=== PATIENT | female | born 1995 | race Caucasian/White ===

== ENCOUNTER 2022-04-26 20:52 | Inpatient (IN) | payer OTHER ==
[~2022-04-26] VITALS: Ht 157.5 cm; Wt 68.0 kg
[~2022-04-26 20:52] MED LIST: OXYTOCIN 10 USP UNITS/ML IV ONE
[2022-04-26] MEDS ORDERED: OXYTOCIN-LR 20 UNITS/1000 ML 1,000 ML IV SCH (21:30)
[2022-04-26] MEDS ORDERED: LACTATED RINGERS 1000ML 1,000 ML IV PRN (21:30)
[2022-04-26] MEDS ORDERED: ROPIVACAINE 0.2% 100ML VIAL 100 ML EP SCH (22:00)
[2022-04-26] MEDS ORDERED: EPHEDRINE SULFATE 50 MG/ML AMPULE IVP PRN (22:00)
[2022-04-26] MEDS ORDERED: LACTATED RINGERS 500 ML 500 ML IV PRN (22:00)
[2022-04-26] MEDS ORDERED: NALOXONE HCL 0.4 MG/1 ML ML IV PRN (22:00)
[2022-04-26 22:16] LABS: HEMATOCRIT 31.9 % (36-48); MEAN CORPUSCULAR HGB CONC 31.7 g/dL (32.0-36.0); MEAN CORPUSCULAR VOLUME 72.5 fL (79-99); NUCLEATED RED BLOOD CELLS 0.2 % (0.0-0.19); PLATELET COUNT (AUTO) 389 K/uL (130-400); WHITE BLOOD COUNT (AUTO) 13.6 K/uL (4.8-10.8)
[2022-04-26 22:41] LABS: APPEARANCE,URINE CLEAR (CLEAR); BILIRUBIN,URINE NEGATIVE (NEGATIVE); COLOR,URINE YELLOW (YELLOW); GLUCOSE, URINE (UA) NEGATIVE (NEGATIVE); KETONES,URINE NEGATIVE (NEGATIVE); LEUKOCYTE ESTERASE ,URINE TRACE (NEGATIVE); NITRATE,URINE NEGATIVE (NEGATIVE); OCCULT BLOOD,URINE LARGE (NEGATIVE); PH,URINE 6.5 (5.0-8.0); PROTEIN,URINE 30 mg/dL (NEGATIVE)
[2022-04-26 22:49] LABS: AMPHET/METH SCREEN,URINE NEGATIVE (NEGATIVE); BARBITURATE SCREEN, URINE NEGATIVE (NEGATIVE); BENZODIAZEPINES SCREEN,URINE NEGATIVE (NEGATIVE); CANNABINOID SCREEN,URINE NEGATIVE (NEGATIVE); COCAINE SCREEN,URINE NEGATIVE (NEGATIVE); PHENCYCLIDINE SCREEN,URINE NEGATIVE (NEGATIVE)
[2022-04-26 23:00] LABS: BACTERIA,URINE Few /HPF (None Seen); MUCUS,URINE Many LPF (None Seen); SQUAMOUS EPITHELIAL CELL,UR Moderate /HPF (0-2)
[2022-04-26 23:11] VITALS: BP 128/78
[2022-04-26] MEDS: BUTORPHANOL TARTRATE 2 MG/ML IVP PRN (23:31)
[2022-04-27] MEDS ORDERED: OXYTOCIN-LR 20 UNITS/1000 ML 1,000 ML IV SCH (04:00)
[2022-04-27] MEDS: LACTATED RINGERS 1000ML 1,000 ML IV SCH ×3 (04:11→15:42)
[2022-04-27] MEDS: BUTORPHANOL TARTRATE 2 MG/ML IVP PRN (06:51)
[2022-04-27 09:13] LABS: RAPID PLASMA REAGIN NONREACTIVE (NONREACTIVE)
[2022-04-27] MEDS ORDERED: METHYLERGONOVINE MALEATE 0.2 MG/1 ML ML IM PRN (14:30)
[2022-04-27] MEDS ORDERED: CARBOPROST TROMETHAMINE 250 MCG/ML AMP IM PRN (14:30)
[2022-04-27] MEDS ORDERED: TRANEXAMIC ACID 1000MG/10ML IV PRN (14:30)
[2022-04-27] MEDS ORDERED: CLINDAMYCIN IVPB 900MG/50ML 50 ML IV ONE (14:59)
[2022-04-27] MEDS ORDERED: CEFAZOLIN SODIUM 1 GM VIAL IVP PRN (15:00)
[2022-04-27] MEDS ORDERED: MISOPROSTOL 200 MCG TABLET PR PRN (15:00)
[2022-04-27] MEDS ORDERED: CLINDAMYCIN IVPB 900MG/50ML 50 ML IV SCH (15:00)
[2022-04-27] MEDS ORDERED: ACETAMINOPHEN 500 MG TABLET ONE (15:02)
[2022-04-27] MEDS ORDERED: ACETAMINOPHEN 500 MG TABLET PO ONE (15:30)
[2022-04-27] MEDS ORDERED: GENTAMICIN SULFATE 240 MG in 0.9%NACL 100ML 100 ML IV SCH (15:30)
[2022-04-27] MEDS ORDERED: CEFAZOLIN SODIUM 2 GM VIAL IV ONE (17:10)
[2022-04-27] MEDS ORDERED: ONDANSETRON 4MG INJ ONE (17:14)
[2022-04-27] MEDS ORDERED: FENTANYL CITRATE PF 50 MCG/1 ML 2ML VIAL ONE ×2 (17:22→17:23)
[2022-04-27] MEDS ORDERED: MIDAZOLAM HCL 1 MG/ML 2ML VIAL ONE (17:23)
[2022-04-27] MEDS ORDERED: CALDOLOR 800MG+NS 250ML 250 ML IV ONE (17:24)
[2022-04-27] MEDS ORDERED: MEPERIDINE-PF 50 MG/ML SYG ONE (17:38)
[2022-04-27] MEDS ORDERED: ACETAMINOPHEN 500 MG TABLET PO PRN (18:30)
[2022-04-27] MEDS ORDERED: PROMETHAZINE HCL 25 MG/ML 1ML AMPULE IM PRN (18:30)
[2022-04-27] MEDS ORDERED: DIPHENHYDRAMINE HCL 25 MG CAPSULE PO PRN (18:30)
[2022-04-27] MEDS ORDERED: LANOLIN 30GM OINTMENT TP PRN (18:30)
[2022-04-27] MEDS ORDERED: OXYTOCIN-LR 20 UNITS/1000 ML 1,000 ML IV PRN (18:30)
[2022-04-27] MEDS ORDERED: HYDROCODONE/ACETAMINOPHEN 5/325 MG TAB PO PRN (18:30)
[2022-04-27] MEDS ORDERED: BISACODYL 10 MG SUPP.RECT RC PRN (18:30)
[2022-04-27] MEDS ORDERED: DEXTROSE 5 %-0.45 % NACL 1,000 ML IV PRN (18:30)
[2022-04-27] MEDS ORDERED: GENTAMICIN PROTOCOL PER PHARMACY IV SCH (18:30)
[2022-04-27] MEDS ORDERED: MEPERIDINE-PF 75 MG/ML SYG IM PRN (18:30)
[2022-04-27] MEDS ORDERED: EPHEDRINE SULFATE 50 MG/ML AMPULE IVP PRN (19:30)
[2022-04-27] MEDS ORDERED: NALOXONE HCL 0.4 MG/1 ML ML IVP PRN ×3 (19:30)
[2022-04-27] MEDS ORDERED: DiphenhydrAMINE HCL 50 MG/ML VIAL IVP PRN (19:30)
[2022-04-27] MEDS ORDERED: ONDANSETRON 4MG INJ IVP PRN (19:30)
[2022-04-27 21:10] VITALS: BP 137/95
[2022-04-27 23:03] VITALS: BP 139/96
[2022-04-27] MEDS: CLINDAMYCIN IVPB 900MG/50ML 50 ML IV SCH (23:07)
[2022-04-27] MEDS: GENTAMICIN 80 MG/NS 100 ML PB 100 ML IV SCH (23:51)
[2022-04-28] MEDS: CALDOLOR 800MG+NS 250ML 250 ML IV SCH ×2 (01:39→09:47)
[2022-04-28 04:07] VITALS: BP 119/81
[2022-04-28] MEDS: CLINDAMYCIN IVPB 900MG/50ML 50 ML IV SCH ×2 (06:27→14:21)
[2022-04-28] MEDS: ACETAMINOPHEN WITH CODEINE 1 TAB TAB PO PRN ×2 (06:28→12:00)
[2022-04-28] MEDS: DIPH,PERTUSS(ACELL),TET VAC/PF 0.5 ML VIAL IM SCH ×3 (06:44→23:05)
[2022-04-28 07:00] VITALS: BP 126/88
[2022-04-28] MEDS: GENTAMICIN 80 MG/NS 100 ML PB 100 ML IV SCH ×2 (07:54→16:10)
[2022-04-28] MEDS: LIDOCAINE 5% TOPICAL PATCH TP SCH (08:02)
[2022-04-28] MEDS: SIMETHICONE 80 MG TAB.CHEW PO PRN ×2 (08:06→20:50)
[2022-04-28] MEDS: DOCUSATE SODIUM 100 MG CAP PO SCH ×3 (08:06→21:00)
[2022-04-28] MEDS: IBUPROFEN 800 MG TAB PO SCH ×4 (10:30→23:44)
[2022-04-28 12:03] VITALS: BP 130/87
[2022-04-28 15:45] VITALS: BP 112/75
[2022-04-28 19:50] VITALS: BP 108/76
[2022-04-28] MEDS: LACTATED RINGERS 1000ML 1,000 ML IV SCH ×2 (21:00→23:05)
[2022-04-28] MEDS: BUTORPHANOL TARTRATE 2 MG/ML IVP PRN (22:59)
[2022-04-28] MEDS: MEASLES/MUMPS/RUBELLA VACCINE, LIVE 0.5 ML/VIAL SQ SCH (23:00)
[2022-04-28 23:38] VITALS: BP 127/85
[2022-04-29] VITALS (7 sets, daily range): BP systolic 107–138; BP diastolic 67–90
[2022-04-29] MEDS: ACETAMINOPHEN WITH CODEINE 1 TAB TAB PO PRN (00:48)
[2022-04-29] MEDS: IBUPROFEN 800 MG TAB PO SCH ×3 (01:03→16:26)
[2022-04-29] MEDS: SIMETHICONE 80 MG TAB.CHEW PO PRN ×4 (08:27→20:55)
[2022-04-29] MEDS: DOCUSATE SODIUM 100 MG CAP PO SCH ×2 (08:27→20:55)
[2022-04-29] MEDS: LIDOCAINE 5% TOPICAL PATCH TP SCH (08:28)
[2022-04-29] MEDS: LACTATED RINGERS 1000ML 1,000 ML IV SCH ×3 (13:00→20:05)
[2022-04-29] MEDS: DIPH,PERTUSS(ACELL),TET VAC/PF 0.5 ML VIAL IM SCH (20:05)
[2022-04-29] MEDS: MEASLES/MUMPS/RUBELLA VACCINE, LIVE 0.5 ML/VIAL SQ SCH (20:06)
[2022-04-30] MEDS: IBUPROFEN 800 MG TAB PO SCH ×2 (00:20→08:08)
[2022-04-30 03:01] VITALS: BP 125/76
[2022-04-30 07:35] VITALS: BP 128/80
[2022-04-30] MEDS: DOCUSATE SODIUM 100 MG CAP PO SCH (08:07)
[2022-04-30] MEDS: SIMETHICONE 80 MG TAB.CHEW PO PRN (08:07)
[2022-04-30] MEDS: LIDOCAINE 5% TOPICAL PATCH TP SCH (08:08)
[2022-04-30] MEDS ORDERED: DOCU-116 PO (09:56)
[2022-04-30] MEDS ORDERED: IBUP-2077 PO (09:57)
== END 2022-04-30 11:05 | disposition home or self-care (01) | DRG 786 ==
LOC: EDH 20:52 → OBSVTOIN 20:53 → LDH 20:53 → WSH 04-27 21:05
PROVIDERS: ADMIT Obstetrics & Gynecology; ATTEND Obstetrics & Gynecology
PROC: 3E0234Z Introduction of Serum, Toxoid and Vaccine into Muscle, Percutaneous Approach (ICD-10-PCS; 2022-04-27)
PROC: 10D00Z1 Extraction of Products of Conception, Low, Open Approach (ICD-10-PCS; principal; 2022-04-27 17:00)
DX: O62.2 Other uterine inertia (principal); O41.1230 Chorioamnionitis, third trimester, not applicable or unspecified; Z3A.40 40 weeks gestation of pregnancy; O69.81X0 Labor and delivery complicated by cord around neck, without compression, not applicable or unspecified; Z37.0 Single live birth; Z23 Encounter for immunization
CPT/HCPCS: 36415; 59510; 80305; 81001; 85027; 86592; 86701; 86850; 86900; 86901; 87088; 87340; 87390; 90715; A4344; G0378; J0595; J0690; J1580; J1741; J2175; J2250; J2405; J2550; J2590; J2795; J3010; J3490; J7120

== ENCOUNTER 2023-11-25 10:27 | Observation (INO) | payer MEDICAID ==
[~2023-11-25] VITALS: Ht 157.5 cm; Wt 51.7 kg
[~2023-11-25 10:27] MED LIST changes: +DOCU-116 PO; +IBUP-2077 PO; -OXYTOCIN 10 USP UNITS/ML IV ONE
[2023-11-25] MEDS: HYDROCODONE/ACETAMINOPHEN 10/325 MG TAB PO ONE (11:27)
[2023-11-25] MEDS ORDERED: ONDANSETRON 4MG INJ IVP PRN (14:00)
[2023-11-25 14:02] LABS: BASOPHILS # (AUTO) 0.01 K/uL (0.00-0.20); BASOPHILS % (AUTO) 0.1 % (0.0-5.0); EOSINOPHILS # (AUTO) 0.01 K/uL (0.00-0.70); EOSINOPHILS % (AUTO) 0.1 % (0.0-8.0); HEMATOCRIT 41.8 % (36-48); IMMATURE GRANULOCYTE ABSOLUTE 0.05 K/uL (0-1); LYMPHOCYTES # (AUTO) 2.4 K/uL (1.0-4.8); LYMPHOCYTES % (AUTO) 19.5 % (21.0-51.0); MEAN CORPUSCULAR VOLUME 81.6 fL (79-99); MONOCYTES # (AUTO) 0.4 K/uL (0.1-1.0); MONOCYTES % (AUTO) 2.9 % (3.0-13.0); NEUTROPHILS # (AUTO) 9.3 K/uL (1.8-7.7); PLATELET COUNT (AUTO) 329 K/uL (130-400); RED BLOOD CELL COUNT(AUTO) 5.12 MIL/uL (4.00-5.50); RED CELL DISTRIBUTION WIDTH 13.5 % (11.0-15.5); WHITE BLOOD COUNT (AUTO) 12.1 K/uL (4.8-10.8)
[2023-11-25] MEDS: DIPH,PERTUSS(ACELL),TET VAC/PF 0.5 ML VIAL IM ONE (14:03)
[2023-11-25 14:12] LABS: INR <= 0.93 (0.85-1.15); PROTHROMBIN TIME 9.9 SEC (9.6-11.6)
[2023-11-25 14:14] LABS: PARTIAL THROMBOPLASTIN TIME 27.1 SEC (26.3-35.5)
[2023-11-25 14:15] LABS: % IRON SATURATION 13.7 % (22-44)
[2023-11-25 14:31] LABS: ALBUMIN 3.9 g/dL (3.5-5.0); BILIRUBIN,TOTAL 0.5 mg/dL (0.2-1.0); CREATININE 0.6 mg/dL (0.5-1.5); MAGNESIUM 1.9 mg/dL (1.80-2.40); POTASSIUM 3.6 mmol/L (3.5-5.1); TOTAL PROTEIN, SERUM 7.7 g/dL (6.0-8.3)
[2023-11-25] MEDS: ONDANSETRON 4MG INJ IVP PRN (15:19)
[2023-11-25] MEDS: MORPHINE 2 MG SYG IVP PRN (15:19)
[2023-11-25] MEDS: 0.9%NACL 1000ML 1,000 ML IV SCH (15:37)
[2023-11-25] MEDS: CEFAZOLIN SODIUM 1 GM VIAL IVPB SCH (15:38)
[2023-11-25 16:00] VITALS: BP 134/76; PULSE 59; RESP 16
[2023-11-25] MEDS: KETOROLAC 15MG/ML VIAL (15MG/ML) IV PRN (16:51)
[2023-11-25] MEDS: FAMOTIDINE 20MG VIAL IV SCH (18:54)
[2023-11-25 19:05] VITALS: O2SAT 80; O2SAT 99
[2023-11-25 20:00] VITALS: BP 114/66; PULSE 60; RESP 18
[2023-11-25] MEDS: HYDROCODONE/ACETAMINOPHEN 5/325 MG TAB PO ONE (22:16)
[2023-11-25 23:00] VITALS: BP 114/66; PULSE 60; RESP 18
[2023-11-25 23:53] VITALS: BP 124/70; PULSE 80; RESP 18
[2023-11-26] VITALS (26 sets, daily range): BP systolic 104–139; BP diastolic 47–86; PULSE 61–98; RESP 12–19; O2SAT 95
[2023-11-26] MEDS ORDERED: LIDOCAINE PF 100MG/5ML (2%) SYRINGE 5ML ONE (08:29)
[2023-11-26] MEDS ORDERED: FENTANYL CITRATE PF 50 MCG/1 ML 2ML VIAL ONE (08:30)
[2023-11-26] MEDS ORDERED: PROPOFOL 10 MG/ML 20ML VIAL IV ONE (08:30)
[2023-11-26] MEDS ORDERED: MIDAZOLAM HCL 1 MG/ML 2ML VIAL ONE (08:30)
[2023-11-26] MEDS ORDERED: DEXAMETHASONE SOD PHOSPHATE 10MG/ML 1ML VIAL ONE (08:31)
[2023-11-26] MEDS ORDERED: ONDANSETRON 4MG INJ ONE (08:31)
[2023-11-26] MEDS: CEFAZOLIN SODIUM 2 GM VIAL ONE (08:52)
[2023-11-26] MEDS: BUPIVACAINE/PF 0.25% 30ML VIAL IJ ONE (09:05)
[2023-11-26] MEDS ORDERED: PHENYLEPHRINE HCL 10 MG/ML 1ML VIAL IV ONE (09:25)
[2023-11-26] MEDS: MEPERIDINE-PF 25 MG/ML SYG ONE ×2 (10:13→10:24)
[2023-11-26] MEDS: KETOROLAC 15MG/ML VIAL (15MG/ML) ONE (14:29)
[2023-11-27 04:00] VITALS: BP 115/69; PULSE 75; RESP 19
[2023-11-27 05:02] LABS: BASOPHILS # (AUTO) 0.01 K/uL (0.00-0.20); BASOPHILS % (AUTO) 0.1 % (0.0-5.0); EOSINOPHILS # (AUTO) 0.01 K/uL (0.00-0.70); EOSINOPHILS % (AUTO) 0.1 % (0.0-8.0); HEMATOCRIT 36.7 % (36-48); IMMATURE GRANULOCYTE ABSOLUTE 0.02 K/uL (0-1); LYMPHOCYTES # (AUTO) 2.6 K/uL (1.0-4.8); LYMPHOCYTES % (AUTO) 27.1 % (21.0-51.0); MEAN CORPUSCULAR HEMOGLOBIN 26.7 pg (27.0-33.0); MEAN CORPUSCULAR HGB CONC 32.2 g/dL (32.0-36.0); MONOCYTES # (AUTO) 0.7 K/uL (0.1-1.0); MONOCYTES % (AUTO) 7.2 % (3.0-13.0); NEUTROPHILS # (AUTO) 6.2 K/uL (1.8-7.7); NEUTROPHILS % (AUTO) 65.3 % (40.0-77.0); PLATELET COUNT (AUTO) 138 K/uL (130-400); RED BLOOD CELL COUNT(AUTO) 4.42 MIL/uL (4.00-5.50); RED CELL DISTRIBUTION WIDTH 13.3 % (11.0-15.5); WHITE BLOOD COUNT (AUTO) 9.5 K/uL (4.8-10.8)
[2023-11-27 05:19] LABS: CREATININE 0.4 mg/dL (0.5-1.5); POTASSIUM 3.8 mmol/L (3.5-5.1)
[2023-11-27 08:00] VITALS: BP 141/85; PULSE 76; RESP 16
[2023-11-27 10:00] VITALS: O2SAT 100
[2023-11-27] MEDS: ACETAMINOPHEN 500 MG TABLET PO PRN (11:13)
[2023-11-27 12:00] VITALS: BP 106/61; PULSE 58; RESP 16
[2023-11-27 12:13] VITALS: TEMP 97.1
[2023-11-27] MEDS ORDERED: ACET-2079 PO (15:10)
[2023-11-27 15:41] VITALS: BP 112/88; PULSE 64; RESP 16
== END 2023-11-27 16:19 | disposition home or self-care (01) ==
LOC: EDH 10:27 → INTOOBSV 10:28 → EDHIP 10:28 → 4DH 14:15
PROVIDERS: ADMIT Internal Medicine; ATTEND Internal Medicine
DX: S61.211A Laceration without foreign body of left index finger without damage to nail, initial encounter (principal); S61.213A Laceration without foreign body of left middle finger without damage to nail, initial encounter; D72.829 Elevated white blood cell count, unspecified; D64.9 Anemia, unspecified; W26.0XXA Contact with knife, initial encounter; Y93.89 Activity, other specified; Y92.89 Other specified places as the place of occurrence of the external cause; Y99.8 Other external cause status; Z79.899 Other long term (current) drug therapy; Z23 Encounter for immunization
CPT/HCPCS: 96365; 96366 ×3; 96375; 99284; 83540; 83550; 82550; 83735; 80053; 84703; 82728; 85025 ×2; 85610; 85730; 86850; 86900; 86901; 36415 ×2; 90715; 73130; 90471; 13132; 96376 ×2; 97161; 97116; 97530; 80048; S0028 ×4; J0690 ×7; J2270 ×5; J7030; J2405 ×3; J1885 ×3; G0378 ×25; J7120; A4606; J3010; J1100; J0665; J3490 ×2; J2250; J2175 ×2; J2371; J2001; J2704